=== PATIENT | male | born 1960 | race Caucasian/White ===

== ENCOUNTER 2019-06-27 06:35 | Day surgery (SDC) | payer OTHER ==
[~2019-06-27 06:35] MED LIST: Lactated Ringers 1,000 ML IV SCH; Lidocaine 1%/Sod Bicarbonate in NS 8.4% 1 ML Syringe IDERM PRN; Sodium Chloride 0.9% 10 ML Syringe FLUSH PRN
[2019-06-27] MEDS ORDERED: Propofol 200 MG/20 ML SDV ONE (07:33)
[2019-06-27] MEDS ORDERED: fentaNYL 100 MCG/2 ML SDV ONE (07:33)
[2019-06-27] MEDS ORDERED: Lidocaine 1% 4 ML ONE (07:34)
[2019-06-27] MEDS ORDERED: Albuterol 0.083% 2.5 MG/3 ML Neb Soln NEB ONE (07:38)
[2019-06-27] MEDS ORDERED: Albuterol 0.083% 2.5 MG/3 ML Neb Soln ONE (07:40)
--- NOTE | 2019-06-27 08:47 | PCM48HPAN ---
Post Anesthesia Note - EVALUATION WITHIN 48HRS OF ANESTHETIC Vital Signs in Normal Range: Yes Patient Participated in Evaluation: Yes Respiratory Function Stable: Yes Airway Patent: Yes Cardiovascular Function Stable: Yes Hydration Status Stable: Yes Pain Control Satisfactory: Yes Nausea and Vomiting Control Satisfactory: Yes Mental Status Recovered: Yes Vital Signs: Last Vital Signs Temp 36.5 C 06/27/19 06:45 Pulse 86 06/27/19 06:45 Resp 16 06/27/19 06:45 BP 131/88 06/27/19 06:45 Pulse Ox 97 06/27/19 07:47 0840 112/74 92 16 92% 98.4F
--- NOTE | 2019-06-27 08:49 | PCM.OPNOTE ---
- General Post-Op/Procedure Note Date of Surgery/Procedure: 06/27/19 Operative Procedure(s): Colonoscopy with cold forceps biopsy Findings: Internal and external hemorrhoids, colon polyps x 7 Pre Op Diagnosis: Positive Fecal Immunochemical Test Post-Op Diagnosis: Internal and external hemorrhoids, colon polyps x 7 Anesthesia Technique: MAC Primary Surgeon: Kristopher Self Anesthesia Provider: Brigette Hdez EBL in mLs: 5 Complications: None Condition: Good Free Text/Narrative:: After the patient gave verbal and written consent he was placed on blood pressure and pulse ox monitoring. He was given iv sedation which he tolerated well. The olympus colonoscope was inserted per rectum and advanced to the cecum without difficulty. The ileocecal valve and appendiceal orfice were imaged documenting cecal intubation. The scope was slowly withdrawn. The mucosa was carefully examined. The views were good and the prep was good. Internal and external hemorrhoids. 1 sigmoid polyp and 6 rectal polyps were noted and removed with cold forceps biopsy. There was good hemostasis. The scope was then retroflexed in the rectum and the details are above.
--- NOTE | 2019-06-27 08:55 | PCM.PREANE ---
Preanesthetic Assessment - Procedure Proposed Procedure: Colonoscopy - Anesthesia/Transfusion/Family Hx Anesthesia History: Prior Anesthesia Without Reaction Family History of Anesthesia Reaction: No - Review of Systems General: No Symptoms Pulmonary: Cough (Dry, chronic, no nasal drainage, no fever. SpO2 89-93% on RA. Dr. Aden notified. ) Cardiovascular: No Symptoms Gastrointestinal: Other (GERD) Neurological: No Symptoms Other: Reports: None (Obesity BMI 40.7), Diabetes (Blood glucose 126 mg/dl) - Physical Assessment NPO Status Date: 06/26/19 NPO Status Time: 20:15 Vital Signs: Last Vital Signs Temp 36.9 C 06/27/19 08:40 Pulse 92 06/27/19 08:40 Resp 16 06/27/19 08:40 BP 112/74 06/27/19 08:40 Pulse Ox 92 L 06/27/19 08:40 Height: 1.83 m Weight: 136.078 kg ASA Class: 3 Mental Status: Alert & Oriented x3 Airway Class: Mallampati = 3 Dentition: Reports: Caries Thyro-Mental Finger Breadths: 3 Mouth Opening Finger Breadths: 3 ROM/Head Extension: Full Lungs: Clear to Auscultation, Normal Respiratory Effort Cardiovascular: Regular Rate, Regular Rhythm - Allergies Allergies/Adverse Reactions: Allergies Allergy/AdvReac Type Severity Reaction Status Date / Time No Known Allergies Allergy Verified 06/26/19 10:53 - Anesthesia Plan Pre-Op Medication Ordered: Other (Albuterol Nebulizer Treatment) - Acknowledgements Anesthesia Type Planned: MAC Pt an Appropriate Candidate for the Planned Anesthesia: Yes Alternatives and Risks of Anesthesia Discussed w Pt/Guardian: Yes Pt/Guardian Understands and Agrees with Anesthesia Plan: Yes Additional Comments: SPO2 improved to 97% following nebulizer treatment. Enrique denies feeling SOB or ill feeling. Proceed with Colonoscopy as planned. Dr. Aden notified and agrees to proceed at this time. PreAnesthesia Questionnaire HEENT History: Reports: Impaired Vision, Other (See Below) Other HEENT History: wears glasses Cardiovascular History: Reports: None Respiratory History: Reports: None Gastrointestinal History: Reports: Hemorrhoids Genitourinary History: Reports: None [employer]ENGER [employer] History: Reports: None Musculoskeletal History: Reports: Other (See Below) Other Musculoskeletal History: dupytren's contracture, right should loose body Neurological History: Reports: None Psychiatric History: Reports: None Endocrine/Metabolic History: Reports: Diabetes, Type II Hematologic History: Reports: None Immunologic History: Reports: None Oncologic (Cancer) History: Reports: None Dermatologic History: Reports: Other (See Below) Other Dermatologic History: cyst removal from neck - Past Surgical History Head Surgeries/Procedures: Reports: None Cardiovascular Surgical History: Reports: None Respiratory Surgical History: Reports: None GI Surgical History: Reports: Appendectomy Female Surgical History: Reports: None Male Surgical History: Reports: None Neurological Surgical History: Reports: None Musculoskeletal Surgical History: Reports: Shoulder Surgery Oncologic Surgical History: Reports: None Dermatological Surgical History: Reports: None - SUBSTANCE USE Smoking Status *Q: Current Every Day Smoker Tobacco Use Within Last Twelve Months: Snuff/Dip Recreational Drug Use History: No - HOME MEDS Home Medications: Home Meds Aspirin [Ecotrin EC] 81 mg PO DAILY 06/26/19 [History] Omeprazole Magnesium [Prilosec Otc] 20 mg PO DAILY 06/26/19 [History] metFORMIN [Glucophage XR] 500 mg PO BID 06/26/19 [History] - CURRENT (IN HOUSE) MEDS Current Meds: Current Medications Lactated Ringer's (Ringers, Lactated) 1,000 mls @ 125 mls/hr IV ASDIRECTED MADDY Stop: 06/27/19 23:00 Last Admin: 06/27/19 07:10 Dose: 125 mls/hr Lidocaine/Sodium Bicarbonate (Buffered Lidocaine 1% In Ns 8.4%) 0.25 ml IDERM ONETIME PRN PRN Reason: Prior to IV Start Stop: 06/27/19 18:00 Last Admin: 06/27/19 07:09 Dose: 0.25 ml Sodium Chloride (Saline Flush) 10 ml FLUSH ASDIRECTED PRN PRN Reason: Keep Vein Open Stop: 06/27/19 18:00 Discontinued Medications Albuterol (Proventil Neb Soln) 2.5 mg NEB ONETIME ONE Stop: 06/27/19 07:39 Last Admin: 06/27/19 07:44 Dose: 2.5 mg Albuterol (Proventil Neb Soln) Confirm Administered Dose 2.5 mg .ROUTE .STK-MED ONE Stop: 06/27/19 07:41 Last Admin: 06/27/19 07:46 Dose: Not Given Fentanyl (Sublimaze) Confirm Administered Dose 100 mcg .ROUTE .STK-MED ONE Stop: 06/27/19 07:34 Lidocaine HCl (Xylocaine-Mpf 1%) Confirm Administered Dose 4 mls @ as directed .ROUTE .STK-MED ONE Stop: 06/27/19 07:35 Propofol (Diprivan 20 Ml) Confirm Administered Dose 400 mg .ROUTE .STK-MED ONE Stop: 06/27/19 07:34
== END 2019-06-27 09:21 | disposition home or self-care (01) ==
LOC: JD.SDS 06:35
PROVIDERS: ATTEND Family Medicine
DX: D12.5 Benign neoplasm of sigmoid colon (principal); K62.1 Rectal polyp; K64.8 Other hemorrhoids; K64.4 Residual hemorrhoidal skin tags; E11.9 Type 2 diabetes mellitus without complications; Z79.899 Other long term (current) drug therapy; Z79.84 Long term (current) use of oral hypoglycemic drugs; Z79.82 Long term (current) use of aspirin; Z90.49 Acquired absence of other specified parts of digestive tract; Z87.891 Personal history of nicotine dependence
CPT/HCPCS: 45380; 94640; J2001; J2704; J3010; J7120; 00813